=== PATIENT | female | born 1990 | race Caucasian/White ===

== ENCOUNTER 2019-05-01 22:37 | Emergency (ER) | payer MEDICAID, OTHER ==
[~2019-05-01] VITALS: Ht 160 cm; Wt 70.8 kg
[2019-05-01 22:40] VITALS: BP 110/80
[2019-05-01] MEDS ORDERED: LIDOCAINE MPF 1% 5 ML ONE ×3 (23:44→23:55)
[2019-05-01] MEDS: IBUPROFEN 600 MG TAB PO ONE (23:46)
[2019-05-02] MEDS: LIDOCAINE 1% 500 MG/50 ML VIAL INJ SCH (00:03)
[2019-05-02] MEDS ORDERED: BACITRACIN OINT 500 UNITS/GM PKT TP ONE (00:04)
[2019-05-02 00:50] VITALS: BP 110/80
== END 2019-05-02 00:50 | disposition home or self-care (01) ==
LOC: MED 22:37
DX: S92.421A Displaced fracture of distal phalanx of right great toe, initial encounter for closed fracture (principal); S92.531A Displaced fracture of distal phalanx of right lesser toe(s), initial encounter for closed fracture; W20.8XXA Other cause of strike by thrown, projected or falling object, initial encounter; Y93.89 Activity, other specified; Y92.89 Other specified places as the place of occurrence of the external cause; Y99.8 Other external cause status
CPT/HCPCS: 11730; 73660; 99283; J2001